=== PATIENT | female | born 1975 | race Caucasian/White ===

== ENCOUNTER → 2017-05-12 11:03 | Outpatient (REF) | payer BC, SELFPAY ==
[2017-05-12 13:59] LABS: Alanine Aminotransferase 49 U/L (12-78); Albumin Level 4.4 gm/dL (3.4-5.0); Albumin/Globulin Ratio 1.2 (1.1-1.8); Alkaline Phosphatase 99 U/L (46-116); Anion Gap 15.1 mEq/L (5-15); Aspartate Amino Transferase 38 U/L (15-37); Bilirubin,Total 0.4 mg/dL (0.2-1.0); Blood Urea Nitrogen 9 mg/dL (7-18); Calcium 9.9 mg/dL (8.5-10.1); Carbon Dioxide 28 mmol/L (21.0-32.0); Chloride 100 mmol/L (98-107); Chol/HDL Ratio 5.7 (1-3.5); Cholesterol 301 mg/dL (140-200); Creatinine,Serum 0.76 mg/dL (0.55-1.02); Estimated Glomerular Filt Rate 83 ml/min (>60); Free T4 (Free Thyroxine) 0.89 ng/dl (0.76-1.46); GFR (African American) 101 ML/MIN (>60); Globulin 3.7 gm/dl (1.3-3.2); Glucose 94 mg/dL (74-106); HDL Cholesterol 53 mg/dL (29-89); LDL Cholesterol 221 mg/dL (0-130); Potassium 4.1 mmoL/L (3.5-5.1); Sodium 139 mmol/L (136-145); Total Protein,Serum 8.1 gm/dL (6.4-8.2); Triglycerides 134 mg/dL (30-200); VLDL Cholesterol 27 mg/dL (0-40)
== END ==
LOC: LAB 11:03
PROVIDERS: Visit Provider Emergency Medicine
DX: R68.89 Other general symptoms and signs (principal)
CPT/HCPCS: 80053; 80061; 84439; 84443

== ENCOUNTER → 2017-10-28 09:36 | Outpatient (REF) | payer BC, SELFPAY ==
[2017-10-28 14:15] LABS: Amphetamine/Metha Screen,Urine Negative ng/mL (<1000); Barbiturates Screen,Urine Negative ng/mL (<200); Benzodiazepines Screen,Urine Negative ng/mL (<200); Cannabinoid Screen,Urine Positive ng/mL (<50); Cocaine Screen,Urine Negative ng/mL (<300); Methadone Screen,Urine Negative ng/mL (<300); Opiate Screen,Urine Negative ng/mL (<300); Phencyclidine Screen,Urine Negative ng/mL (<25)
== END ==
LOC: LAB 09:36
PROVIDERS: Visit Provider Nurse Practitioner Family
DX: R68.89 Other general symptoms and signs (principal)
CPT/HCPCS: 80305

== ENCOUNTER 2020-02-15 13:52 | Emergency (ER) | payer OTHER, SELFPAY ==
[2020-02-15 13:53] VITALS: BP 178/105; PULSE 66; RESP 18; TEMP 36.8; O2SAT 100; BMI 32.5
--- NOTE | 2020-02-15 14:15 | XR_ITS ---
PROCEDURE: XR CHEST PORTABLE CLINICAL HISTORY: epigastric pain COMPARISON: CR CXR CHEST(2 VIEWS-NOT PORTABLE) from 10/08/2013 CR CXR CHEST(2 VIEWS-NOT PORTABLE) from 11/21/2015 CR CXR CHEST(2 VIEWS-NOT PORTABLE) from 11/13/2016 FINDINGS: The cardiomediastinal silhouette and pulmonary vascularity are within normal limits. The lungs are clear without infiltrates, suspicious nodules, or pleural effusions. No acute bony abnormalities. IMPRESSION: No acute findings. Dictated by: Laureano Post MD 02/15/2020 15:00 Laureano Post MD in [place] 02/15/2020 15:00
--- NOTE | 2020-02-15 14:15 | HMH.EDGENADL ---
ED Disposition Clinical Impression: Epigastric pain Reflux esophagitis Qualifiers: Esophagitis bleeding: without hemorrhage Qualified Code(s): K21.00 - Gastro-esophageal reflux disease with esophagitis, without bleeding Disposition: Left Against Medical Advice Condition on Discharge: Good Instructions: DI for Diarrhea and Traveler's Diarrhea -- Adult, DI for Diarrhea and Traveler's Diarrhea -- Child, DI for Nausea -- Adult, DI for Nausea -- Child Referrals: Eunice Womack [Primary Care Provider] - Time of Disposition: 16:23 - Critical Care Critical Care Time: No Attestation: On 02/15/20, the high probability of a clinically significant, sudden or life threatening deterioration of the following system(s) required my full and direct attention, intervention and personal management. The time I documented below is in addition to time spent performing reported procedures but includes the following listed in this critical care notation. Medical Decision Making - Medical Records Medical records reviewed: Yes: I reviewed the patient's medical records. - [place] Inquiry Pt receiving controlled substance: No Vital Signs: 02/15/20 13:53 02/15/20 14:34 02/15/20 15:00 Temperature 98.2 F Temperature Source Oral Pulse Rate Pulse Rate [Left Radial] 66 62 116 H Respiratory Rate 18 Blood Pressure Blood Pressure [Right Arm] 178/105 H 165/89 H 153/110 H Blood Pressure Mean [Right Arm] 129 114 124 Blood Pressure Source Blood Pressure Source [Right Arm] Automatic Cuff Automatic Cuff Automatic Cuff Blood Pressure Position Blood Pressure Position [Right Arm] Sitting Sitting Sitting 02 Sat by Pulse Oximetry 100 99 99 Oxygen Delivery Method Room Air Room Air Room Air 02/15/20 15:26 02/15/20 16:45 Temperature 98.2 F Temperature Source Oral Pulse Rate 86 Pulse Rate [Left Radial] 86 Respiratory Rate 18 Blood Pressure 135/84 Blood Pressure [Right Arm] 135/84 Blood Pressure Mean [Right Arm] 101 Blood Pressure Source Automatic Cuff Blood Pressure Source [Right Arm] Automatic Cuff Blood Pressure Position Sitting Blood Pressure Position [Right Arm] Sitting 02 Sat by Pulse Oximetry 98 Oxygen Delivery Method Room Air Room Air - Lab Data Lab Results 02/15/20 16:00: WBC 10.5, RBC 5.20, Hgb 16.2, Hct 45.2, MCV 87.0, MCH 31.2, MCHC 35.8 H, RDW 13.1, Plt Count 305, MPV 7.6, Neut % (Auto) 73.5, Lymph % (Auto) 18.4, [place] % (Auto) 4.9, Eos % (Auto) 2.6, Baso % (Auto) 0.6, Neut # (Auto) 7.7, Lymph # (Auto) 1.9, [place] # (Auto) 0.5, Eos # (Auto) 0.3, Baso # (Auto) 0.1 02/15/20 16:00: Sodium 139, Potassium 4.8, Chloride 103, Carbon Dioxide 28, Anion Gap 12.8, BUN 9, Creatinine 0.80, Estimated Creat Clear 121, Estimated GFR 78, Est GFR ( Amer) 94, Glucose 107 H, Calcium 10.4 H, Total Bilirubin 0.5, AST 50 H, ALT 58, Alkaline Phosphatase 96, Troponin I < 0.01, Total Protein 8.6 H, Albumin 4.8, Globulin 3.8 H, Albumin/Globulin Ratio 1.3 02/15/20 16:00: Lipase 52 Result diagrams: 02/15/20 16:00 02/15/20 16:00 Orders (Tests/Meds): ED MEDICATIONS Discontinued Medications Generic Name Dose Route Start Last Admin Trade Name Freq PRN Reason Stop Dose Admin Belladonna Alkaloids 60 ml 02/15/20 14:08 02/15/20 14:41 Gi Cocktail 60ml Udc PO 02/15/20 14:09 60 ml ONCE ONE Administration ORDERS Category Date Time Status EKG Request [ECG Request by /Faustina] Stat Y 02/15/20 14:15 Ordered Medical Decision Narrative: In summary this is a 45-year-old female presenting to the emergency department with epigastric pain, reflux, nausea. Patient clinically stable on arrival. She is hypertensive. Differential diagnoses include reflux, peptic ulcer disease, pneumonia, ACS, pancreatitis, biliary disease. Will obtain CBC, CMP, face, chest x-ray, EKG, troponin profile. Given GI cocktail. X-ray shows no focal infiltrate. No free air under the diaphragms. Initial laboratory results are reas
[2020-02-15 14:34] VITALS: BP 165/89; PULSE 62; O2SAT 99
[2020-02-15 15:00] VITALS: BP 153/110; PULSE 116; O2SAT 99
[2020-02-15 15:26] VITALS: BP 135/84; PULSE 86; O2SAT 98
[2020-02-15 16:14] LABS: Basophils # 0.1 K/mm3 (0-0.2); Basophils % 0.6 % (0.1-2.0); Eosinophils # 0.3 K/mm3 (0.0-0.4); Eosinophils % 2.6 % (0.1-12.0); Hematocrit 45.2 % (37.0-47.0); Hemoglobin 16.2 g/dL (12.2-16.2); Lymphocytes # 1.9 K/mm3 (0.7-4.5); Lymphocytes % 18.4 % (10-50); Mean Corpuscular HGB Conc 35.8 g/dL (31.8-35.4); Mean Corpuscular Hemoglobin 31.2 pg (27.0-31.2); Mean Platelet Volume 7.6 fl (7.4-10.4); Monocytes # 0.5 K/mm3 (0.1-1.0); Monocytes % 4.9 % (1.7-9.3); Neutrophils # 7.7 K/mm3 (1.8-7.8); Neutrophils % 73.5 % (37.0-80.0); Platelet Count 305 K/mm3 (142-424); Red Cell Distribution Width 13.1 % (11.5-17.5); White Blood Count 10.5 K/mm3 (4.8-10.8)
[2020-02-15 16:18] LABS: Alanine Aminotransferase 58 U/L (12-78); Albumin Level 4.8 g/dl (3.5-5.0); Albumin/Globulin Ratio 1.3 (1.1-1.8); Alkaline Phosphatase 96 U/L (38-126); Anion Gap 12.8 mEq/L (5-15); Aspartate Amino Transferase 50 U/L (14-36); Bilirubin,Total 0.5 mg/dl (0.2-1.3); Blood Urea Nitrogen 9 mg/dl (7-17); Calcium 10.4 mg/dl (8.4-10.2); Carbon Dioxide 28 mmol/L (22.0-30.0); Chloride 103 mmol/L (98-107); Creatinine Clearance Estimated 121 mL/min (50-200); Estimated Glomerular Filt Rate 78 ml/min (>60); GFR (African American) 94 ML/MIN (>60); Globulin 3.8 g/dL (1.3-3.2); Glucose 107 mg/dl (74-100); Potassium 4.8 mmoL/L (3.5-5.1); Sodium 139 mmol/L (136-145); Total Protein,Serum 8.6 g/dl (6.3-8.2)
[2020-02-15 16:19] LABS: Lipase 52 U/L (23-300)
--- NOTE | 2020-02-15 16:30 | PC.NURSE ---
Pt was in room waiting for labs. I walked out of another er bed and pt and daughter were walking out the exit door. MD aware of pt decision to leave
[2020-02-15 16:34] LABS: Troponin I < 0.01 ng/ml (0.00-0.034)
[2020-02-15 16:45] VITALS: BP 135/84; PULSE 86; RESP 18; TEMP 36.8; O2SAT 98
== END 2020-02-15 16:47 | disposition left against medical advice (07) ==
PROVIDERS: Emergency Provider Emergency Medicine; PCP Nurse Practitioner Family
DX: K21.00 Gastro-esophageal reflux disease with esophagitis, without bleeding (principal); R10.13 Epigastric pain; E78.5 Hyperlipidemia, unspecified; Z79.899 Other long term (current) drug therapy
CPT/HCPCS: 71045; 80053; 83690; 84484; 85025; 99283

== ENCOUNTER → 2020-05-16 10:50 | Outpatient (CLI) | payer OTHER, SELFPAY ==
--- NOTE | 2020-05-16 10:55 | MM_ITS ---
PROCEDURE: MM DIG SCREENING MAMM BI W/CAD Digital Breast Tomosynthesis Included CLINICAL INDICATION: SCREENING There is a history of breast cancer in the patient's sister diagnosed at age 52 and in the patient's maternal aunt age unknown. Patient currently is on estrogen. COMPARISON: MG DMDXUAVR DIG MAMM-DX UNI ADD VIEWS-RT from 10/08/2013 MG DMDXUR DIG MAMM-DX UNI-RT from 01/27/2014 MG DMSB DIG MAMM-SCREEN YAO from 12/12/2014 TECHNIQUE: Standard CC and MLO images and 3D Tomosynthesis was obtained. R2 CAD reviewed. FINDINGS: Mild scattered diffuse fibroglandular densities are seen in both breasts on a background of fatty breast parenchyma. There are no CAD markings. There is a stable focal area of glandular elements lower outer quadrant right breast. There is no suspicious lesion in either breast and no suspicious microcalcifications. IMPRESSION: Fibrofatty parenchyma with no suspicious lesions seen BI-RAD Category: 2 Benign Finding(s) FOLLOW-UP: 1YR 1 Year Follow-up (A letter has been sent to the patient regarding results of the study.) Dictated by: Dr. Abrahan Walsh MD 05/19/2020 10:48 Dr. Abrahan Walsh MD in [place] 05/19/2020 10:48
== END ==
PROVIDERS: PCP Nurse Practitioner Family; Visit Provider Nurse Practitioner Family
DX: Z12.31 Encounter for screening mammogram for malignant neoplasm of breast (principal)
CPT/HCPCS: 77063; 77067

== ENCOUNTER → 2022-03-19 12:17 | Outpatient (CLI) | payer OTHER, SELFPAY ==
--- NOTE | 2022-03-19 12:20 | MM_ITS ---
PROCEDURE INFORMATION: Exam: MG Bilateral Screening 3D Mammography Exam date and time: 03/19/2022 12:13 PM Age: 47 years old Clinical indication: Screening examination. Her sister had breast cancer at age 52 and a maternal aunt had breast cancer. TECHNIQUE: Imaging protocol: Bilateral Screening tomosynthesis and 2D mammography including computer-aided detection (CAD) when performed. COMPARISON: 1. MG MM DIG SCREENING MAMM BI W/CAD 05/16/2020 10:56 AM 2. MG DMSB DIG MAMM-SCREEN YAO 12/12/2014 11:12 AM 3. MG DMDXUR DIG MAMM-DX UNI-RT 01/27/2014 1:21 PM 4. MG DMDXUAVR DIG MAMM-DX UNI ADD VIEWS-RT 10/08/2013 1:50 PM FINDINGS: MAMMOGRAPHY: Breast composition: The breasts are almost entirely fatty. Mass: None. Architectural distortion: None. Calcifications: No suspicious calcifications. Asymmetric density: No developing asymmetry. Skin thickening: None. Axillary adenopathy: None. IMPRESSION: No mammographic evidence of malignancy. Annual screening is recommended unless otherwise clinically indicated. ASSESSMENT: BI-RADS Category 1: Negative
== END ==
PROVIDERS: PCP Nurse Practitioner Family; Visit Provider Nurse Practitioner Family
DX: Z12.31 Encounter for screening mammogram for malignant neoplasm of breast (principal)
CPT/HCPCS: 77063; 77067

== ENCOUNTER 2022-10-14 11:26 | Emergency (ER) | payer OTHER, SELFPAY ==
--- NOTE | 2022-10-14 12:28 | EXP.UTC ---
Discharge Plan Disposition Patient Disposition: Home, Self-Care Condition: Good Prescriptions Prescriptions: New azithromycin [Zithromax] 250 mg tablet 250 mg PO UD DOSE PK Qty: 6 0RF Rx Instructions: Take two (2) tablets today, then one (1) tablet days #2 thru #5 benzonatate 200 mg capsule 200 mg PO BID PRN (Reason: cough) Qty: 30 0RF No Action buprenorphine-naloxone 8-2 mg tablet, sublingual 1 tab SUBLINGUAL BID pravastatin 20 mg tablet 20 mg PO DAILY Patient Comments: TAKE 1 TABLET 1 TIME EACH DAY AT BEDTIME FOR CHOLESTEROL. losartan 25 mg tablet 25 mg PO DAILY pantoprazole 40 mg tablet,delayed release (DR/EC) 40 mg PO DAILY famotidine 40 mg tablet 40 mg PO DAILY Patient Comments: TAKE 1 TABLET 2 TIMES EACH DAY fluoxetine 40 mg capsule 40 mg PO DAILY bupropion HCl 150 mg tablet sustained-release 12 hr 150 mg PO BID Patient Comments: TAKE 1 TABLET 2 TIMES EACH DAY estradiol [Climara] 0.1 mg/24 hr patch weekly 1 patch TRANSDERMA WEEKLY Qty: 4 11RF estradiol [Estrace] 0.01 % (0.1 mg/gram) cream 1 g VAGINAL QHS Qty: 42.5 8RF Referrals Follow up/Referrals: Eunice Womack [Primary Care Provider] - See instructions Activity Restrictions/Add. Instructions Additional Instructions/Restrictions: Drink plenty of fluids. Take tylenol or ibuprofen for pain or fever. Take the medications as directed. Follow up with your regular doctor. GO TO THE ER FOR ANY WORSENING SYMPTOMS Clinical Impressions Clinical Impression: Sinusitis, Acute viral syndrome Instructions Patient Instructions: DI for Sinusitis, DI for Viral Syndrome Discharge ED Provider: Douglas Hernandez [facility] General Stated complaint: congestion, earache, dizzyness, headache Time Seen by Provider: 10/14/22 12:27 History of Present Illness Provider Complaint: She states that for the past 3 days she has had sinus congestion, scratchy throat, headache, and malaise. Related Data Home Medications Medication Instructions Recorded Confirmed buprenorphine 8 mg-naloxone 2 mg 1 tab sublingual BID 05/12/17 05/21/21 sublingual tablet bupropion HCl 150 mg tablet,12 hr 150 mg PO BID 05/21/21 05/21/21 sustained-release famotidine 40 mg tablet 40 mg PO DAILY 05/21/21 05/21/21 fluoxetine 40 mg capsule 40 mg PO DAILY 05/21/21 05/21/21 losartan 25 mg tablet 25 mg PO DAILY 05/21/21 05/21/21 pantoprazole 40 mg tablet,delayed 40 mg PO DAILY 05/21/21 05/21/21 release pravastatin 20 mg tablet 20 mg PO DAILY 05/21/21 05/21/21 Previous Rx's Medication Instructions Recorded estradiol 0.01% (0.1 mg/gram) 1 g vaginal QHS #42.5 grams 05/21/21 vaginal cream (Estrace) estradiol 0.1 mg/24 hr weekly 1 patch transdermal WEEKLY #4 ea 05/21/21 transdermal patch (Climara) azithromycin 250 mg tablet 250 mg PO UD DOSE PK #6 tabs 10/14/22 (Zithromax) benzonatate 200 mg capsule 200 mg PO BID PRN cough #30 caps 10/14/22 Allergies Allergy/AdvReac Type Severity Reaction Status Date / Time No Known Allergies Allergy Verified 10/14/22 12:51 [facility] Disclaimer: The information contained in this section may have been updated after the patient was seen, as this information can be updated by other users. Medical History (Updated 10/14/22 @ 12:50 by Douglas Hernandez APRN) Hyperlipidemia Social History Smoking Status: Never smoker alcohol intake: current substance use type: denies use, marijuana and painkillers current occupational status: employed Travel in the last 8 weeks: None household members: family housing: house current occupation: insurance outbound sales consultant ROS Obtained: Yes All systems reviewed & no additional complaints except as documented Constitutional Constitutional: Reports poor appetite Eyes Eyes: Reports system reviewed and no additional complaints, except as documented ENT Ears, Nose, Mouth, and Throat: Reports a
[2022-10-14 12:51] VITALS: BP 153/106; PULSE 89; RESP 18; TEMP 36.9; O2SAT 98; BMI 36.6
[2022-10-14 13:01] VITALS: BP 153/106; PULSE 89; RESP 16; TEMP 36.9
== END 2022-10-14 13:00 | disposition home or self-care (01) ==
PROVIDERS: Emergency Provider Nurse Practitioner Family; PCP Nurse Practitioner Family
DX: J01.90 Acute sinusitis, unspecified (principal); R53.81 Other malaise; B34.9 Viral infection, unspecified; E78.5 Hyperlipidemia, unspecified
CPT/HCPCS: 99204; 99212; G0463

== ENCOUNTER 2024-08-11 12:31 | Day surgery (SDC) | payer OTHER, SELFPAY ==
[2024-08-04 14:13] VITALS: BMI 38.2
[2024-08-11 13:22] VITALS: BP 159/107; PULSE 87; RESP 16; TEMP 36.4; O2SAT 95
[2024-08-11] MEDS: LACTATED RINGERS 1000ML 1,000 ML 50 ML IV (13:34)
--- NOTE | 2024-08-11 13:56 | P.PNANES_ITS ---
[facility] Disclaimer: The information contained in this section may have been updated after the patient was seen, as this information can be updated by other users. Medical History Urinary tract infection History of COVID-19 Anxiety and depression History of gastroesophageal reflux (GERD) Hyperlipidemia Surgical History History of hysterectomy Family History Other Bone cancer Breast cancer Cancer Lung cancer Lymphoma Social History Smoking Status: Never smoker alcohol intake: never substance use type: denies use, marijuana and painkillers current occupational status: unemployed Travel in the last 8 weeks?: None household members: family housing: house current occupation: insurance insurance sales associate Have you lived/traveled outside [place] in past 30 days?: No Contact w/someone who lives/traveled outside US past 30 days?: No Exposure to someone with infectious disease in past 14 days?: No Do you have a fever (greater than 100.4 F or 38 C)?: No Have you tested positive for COVID-19?: No Exposed to someone with COVID-19 in past 14 days?: No Do you have a sore throat?: No Do you have a cough?: No Do you have any weakness?: No Do you have any diarrhea?: No Are you experiencing any unusual bleeding?: No Do you have any muscle aches/pain?: No Do you have any abdominal pain?: No Are you experiencing loss of taste or smell?: No [facility] Anesthesia Checklist Patient Identification Patient Identification: Arm Band and Verbal (Name & ) Structural Data Admitted From: Home Planned Operative Procedure/s: EGD Consent for Planned Operative Procedure(s) Verified: Yes Verified Documents: Surgical Consent NPO Status Verified Time NPO: 00:00 Chart Verification Results Verified: None Additional verifications Anesthesia Reactions: No Airway Assessment Mallampati Score:: Class III C-Spine Mobility Assessed: Yes TMJ Mobility Assessed: Yes Dentition: Dentures-good fit Neurological Assessment Level of Consciousness: Awake, Alert and Appropriate Hx Seizures: No Numbness or tingling in extremities: No Anesthesia Plan Anesthesia Risk discussed: Yes Anesthesia Plan: Verified ASA Class: II Anesthesia Type: MAC
--- NOTE | 2024-08-11 14:41 | EXP.HP ---
History of Present Illness *Admission Date: 08/11/24 *Reason for visit:: Dyspepsia, heartburn, reflux, dysphagia and choking *History of present illness: Mrs. Manriquez is a 49-year-old female who is here for diagnostic EGD secondary to heartburn, reflux, dyspepsia, dysphagia and choking. The examination is deemed medically necessary for diagnostic EGD. The patient has been seen, interviewed and examined prior to the procedure by both myself and the anesthesia provider. [facility] Disclaimer: The information contained in this section may have been updated after the patient was seen, as this information can be updated by other users. Medical History (Updated 08/11/24 @ 14:42 by Warren Li II, MD) Urinary tract infection History of COVID-19 Anxiety and depression History of gastroesophageal reflux (GERD) Hyperlipidemia Surgical History History of hysterectomy Family History Other Bone cancer Breast cancer Cancer Lung cancer Lymphoma Social History Smoking Status: Never smoker alcohol intake: never substance use type: denies use, marijuana and painkillers current occupational status: unemployed Travel in the last 8 weeks?: None household members: family housing: house current occupation: insurance associate sales representative Have you lived/traveled outside US in past 30 days?: No Contact w/someone who lives/traveled outside US past 30 days?: No Exposure to someone with infectious disease in past 14 days?: No Do you have a fever (greater than 100.4 F or 38 C)?: No Have you tested positive for COVID-19?: No Exposed to someone with COVID-19 in past 14 days?: No Do you have a sore throat?: No Do you have a cough?: No Do you have any weakness?: No Do you have any diarrhea?: No Are you experiencing any unusual bleeding?: No Do you have any muscle aches/pain?: No Do you have any abdominal pain?: No Are you experiencing loss of taste or smell?: No Other Medical History Have you received the Flu Vaccine for this season: No Have you received the Pneumonia Vaccine: No Review of Systems Review of Systems Review of systems (narrative): Negative *Cardiovascular Comments: Negative *Gastrointestinal Comments: Negative *Genitourinary Comments: Negative *Musculoskeletal Comments: Negative *Neurologic Comments: Negative Meds Home Medications and Allergies Home Medications ?Medication ?Instructions ?Recorded ?Confirmed ?Type buprenorphine 8 mg-naloxone 2 mg 1.5 tab sublingual DAILY 05/12/17 08/11/24 History sublingual tablet bupropion HCl 150 mg tablet,12 hr 150 mg PO BID 05/21/21 08/11/24 History sustained-release famotidine 40 mg tablet 40 mg PO DAILY 05/21/21 08/11/24 History fluoxetine 40 mg capsule 40 mg PO DAILY 05/21/21 08/11/24 History losartan 25 mg tablet 25 mg PO DAILY 05/21/21 08/11/24 History pantoprazole 40 mg tablet,delayed 40 mg PO DAILY 05/21/21 08/11/24 History release pravastatin 20 mg tablet 20 mg PO DAILY 05/21/21 08/11/24 History cariprazine 4.5 mg capsule 4.5 mg PO DAILY 06/09/24 08/11/24 History ([place]iley) hydrochlorothiazide 25 mg tablet 25 mg PO DAILY 06/09/24 08/11/24 History lamotrigine 300 mg tablet,extended 300 mg PO DAILY 06/09/24 08/11/24 History release 24 hr trazodone 50 mg tablet 50 mg PO HS 06/09/24 08/11/24 History New Prescriptions to Start Prescriptions: Allergies Allergy/AdvReac Type Severity Reaction Status Date / Time No Known Allergies Allergy Verified 08/11/24 13:22 Exam Data for Last 24 hours Vital signs and Labs for Last 24 Hours: Temp Pulse Resp BP Pulse Ox O2 Del Method 97.5 F L 87 16 159/107 H 95 Room Air 08/11/24 13:22 08/11/24 13:22 08/11/24 13:22 08/11/24 13:22 08/11/24 13:22 08/11/24 13:22 *Routine HEENT Exam Head: Present normocephalic Eye: Present EOMI and PERRL ENT: Present mucous membranes moist *Routine Neck Exam Neck: Present supple *Routine Respiratory Exam Respiratory: Present CTA bilaterally *Routine Cardiovascular Exam Cardiovascular: Present RRR *Routine Abdominal Exam Abdominal: Present soft and normoactive bowel sounds; Absent tenderness *Routine Rectal Exam Rectal:: deferred *Routine Genitalia Exam Genitalia:: deferred *Routine Extremities Exam Extremities: Absent cyanosis, clubbing or edema *Routine Skin Exam Skin: Present warm; Absent rash *Routine Neurological Exam Neurological: Present alert and oriented X3 Assessment and Plan *Assessment and plan (1) Acid reflux: Status: Acute Category: Medical Code(s): K21.9 - Gastro-esophageal reflux disease without esophagitis (2) Heartburn: Status: Acute Category: Medical Code(s): R12 - Heartburn (3) Dysphagia: Status: Acute Category: Medical Code(s): R13.10 - Dysphagia, unspecified (4) Choking: Status: Acute Category: Medical Code(s): T17.308A - Unspecified foreign body in larynx causing other injury, initial encounter (5) Dyspepsia: Status: Acute Category: Medical Code(s): R10.13 - Epigastric pain (6) Epigastric pain: Status: Acute Category: Medical Code(s): R10.13 - Epigastric pain Plan A/P: 1. Heartburn/reflux, dyspepsia, dysphagia and choking is the preprocedural diagnosis. The patient will be anesthetized/sedated using MAC sedation. The patient has been seen and examined. Cardiac and lung assessment prior to the examination is stable. Proceed with planned diagnostic EGD.
--- NOTE | 2024-08-11 14:48 | P.PCN_ITS ---
[facility] Procedure Note Date: 08/11/24 Time: 14:55 Procedure Note:: Upper Endoscopy Procedure Report: Esophagogastroduodenoscopy with cold biopsies and TTS balloon dilation Endoscopost: Warren Li II, MD Referring Physician: TRISTAN Pendleton Date of Procedure: August 11, 2024 Equipment: Olympus GIF 190 standard upper endoscope Sedation: MAC sedation Indications: Mrs. Manriquez is a 49-year-old female with dyspepsia, heartburn and reflux. The patient has had some fullness, early satiety and mild nausea and bloating. She also has a history of chronic constipation. The patient also has noted some choking and dysphagia. This is her first EGD for diagnostic purposes. Procedure: Prior to the procedure, a history and physical exam was performed, and patient's medications and allergies were reviewed. The risks, benefits and alternatives of the sedation and procedure were discussed with the patient. All questions were answered and informed consent was obtained. The patient was brought to the procedure room. Patient identification and proposed procedure were verified by the physician and the nurse. The patient was placed in a left lateral decubitus position and the scope was passed under direct vision. Throughout the procedure, the patient's blood pressure, pulse, and oxygen saturations were monitored continuously. The upper GI endoscopy was accomplished without difficulty. The patient tolerated the procedure well. Findings: The scope was passed directly into the upper esophagus and advanced to the fourth portion of duodenum and proximal jejunum. A cold biopsy was taken from the proximal jejunum for disaccharidase assay. The proximal jejunum, post bulbar duodenum, ampulla and duodenal bulb were normal with normal mucosa and conniventes. The scope was withdrawn through a normal duodenal bulb and pylorus into the stomach. There was bile reflux with mild antral gastropathy. There was also moderate chronic gastritis of the proximal stomach. Cold biopsies were taken from the lesser curvature to rule out H. pylori. Upon retroflexion there was a small sliding 2 cm hiatal hernia. The scope was then withdrawn into the esophagus. There was no evidence of reflux esophagitis or Gudino's. There were no rings, strictures, furrowing or corrugation. There was no candidal esophagitis. There were tertiary contractions and evidence of moderate esophageal dysmotility. The entire esophagus was dilated to 60 Kinyarwanda/20 mm with a TTS hydrostatic balloon. There was mild resistance at the cricopharyngeus/cricopharyngeal spasm. The remainder of the esophageal mucosa was normal. Impression: 1. Cricopharyngeal spasm status post dilation to 20 mm 2. Nonerosive GERD with moderate esophageal dysmotility and small 2 cm sliding hiatal hernia 3. Moderate chronic gastritis and bile reflux with mild antral gastropathy Plan: I will follow-up the biopsies and disaccharidase assay. The patient does have functional dyspepsia and functional GERD. I do feel that most of her symptoms of dyspepsia and GERD are related to and driven by lower intestinal gas pressure gradients/high gas pressure buildup resulting in backflow of bile and peptic fluid from the duodenum into the stomach (duodenal reflux). This gas production (carbon dioxide, hydrogen, methane, etc.) from the lower intestinal tract is the byproduct of colonic bacterial fermentation. This colonic fermentation occurs when there is more carbohydrate (dietary starches, sugars and high residue plant fiber) substrate that does not get digested (in the middle or small intestine) or occurs when there is colonic fecal buildup and colonic bacterial overgrowth. This indeed leads to bloating and the gas pressure buildup with gas pressure gradients that do drive backflow and dyspepsia. We will discuss treatment options.
[2024-08-11 14:59] VITALS: BP 132/94; PULSE 79; RESP 17; TEMP 36.8; O2SAT 93
[2024-08-11 15:09] VITALS: BP 146/82; PULSE 80; RESP 19; O2SAT 94
[2024-08-11 15:19] VITALS: BP 152/87; PULSE 85; RESP 19; O2SAT 96
[2024-08-11 15:29] VITALS: BP 139/72; PULSE 83; RESP 19; O2SAT 97
--- NOTE | 2024-08-11 15:44 | SUR.PHASEII ---
attempted to call GI office multiple times to make follow up appointment for pt. left a voicemail for the office to call pt with appointment date and time
[2024-08-18 15:11] LABS: Interpretation Notes (.); Lactase 41.5 (>/= 14.0); Maltase 377.88 (>/= 110.0); Palatinase 27.27 (>/= 8.5); Reference Notes (.); Sucrase 110.27 (>/= 25.0)
== END 2024-08-11 15:50 | disposition home or self-care (01) ==
PROVIDERS: PCP Nurse Practitioner Family; Visit Provider Internal Medicine Gastroenterology
PROC: 0DJ08ZZ Inspection of Upper Intestinal Tract, Via Natural or Artificial Opening Endoscopic (ICD-10-PCS; CPT 43239; principal; 2024-08-11 14:00)
DX: J39.2 Other diseases of pharynx (principal); K21.9 Gastro-esophageal reflux disease without esophagitis; K29.50 Unspecified chronic gastritis without bleeding; K31.9 Disease of stomach and duodenum, unspecified; E78.5 Hyperlipidemia, unspecified; Z79.899 Other long term (current) drug therapy
CPT/HCPCS: 43239; 43249; 82657; C1726; J2003; J2704; J7120